=== PATIENT | female | born 1985 | race American Indian/Alaskan Native ===

== ENCOUNTER 2018-11-24 20:02 | Emergency (ER) | payer MEDICAID ==
[2018-11-24] MEDS ORDERED: SOLU-Medrol IV ONE (21:28)
[2018-11-24] MEDS ORDERED: APRESOLINE IV ONE (21:29)
--- NOTE | 2018-11-24 21:47 | Emergency Department Report ---
HPI - General Chief Complaint: Upper Respiratory Infection Time Seen by Provider: 11/24/18 21:25 - HPI HPI: 33-year-old female presents to the emergency department with a 2-3 day history of some chest congestion, mixed dry and productive cough and shortness of breath. When she is coughing, the patient says that it causes her head and chest hurt. She has a history of asthma and does complain of some recent wheezing. She tried to use her albuterol nebulizer but says that there is something wrong with her mask. She also presents with elevated blood pressure, and a history of hypertension, and says that she has been out of her amlodipine for the past 2 days. She is an intermittent smoker. Her primary care physician is Dr. Negar Fontenot. No recent travel or sick contacts at home. ED Past Medical Hx - Past Medical History Hx Hypertension: Yes Hx Asthma: Yes - Surgical History Past Surgical History?: No - Social History Smoking Status: Current Every Day Smoker Substance Use Type: Alcohol - Medications Home Medications: Home Medications Medication Instructions Recorded Confirmed Last Taken Type Benzonatate [Tessalon Perles] 100 mg PO Q8HR PRN #20 capsule 11/25/18 Unknown Rx RX: ALBUTEROL Inhaler (OR & NICU) 2 puff IH QID PRN #1 inhalation 11/25/18 Unknown Rx [ProAir HFA Inhaler] RX: amLODIPine [Norvasc] 10 mg PO DAILY #30 tab 11/25/18 Unknown Rx ED Review of Systems ROS: Stated complaint: CHEST PAIN/COUGH Other details as noted in HPI Constitutional: denies: chills, fever Eyes: denies: eye pain, vision change ENT: denies: ear pain, throat pain Respiratory: cough, shortness of breath, wheezing Cardiovascular: chest pain. denies: edema Gastrointestinal: denies: abdominal pain, vomiting Genitourinary: denies: urgency, dysuria Musculoskeletal: myalgia. denies: joint swelling Skin: denies: rash, lesions Neurological: headache. denies: weakness Physical Exam - Physical Exam Vital Signs: Vital Signs 11/24/18 11/24/18 20:06 20:12 Temperature 98.4 F Pulse Rate 94 H Respiratory 20 20 Rate Blood Pressure 182/113 [Left] O2 Sat by Pulse 98 98 Oximetry ED Course Vital Signs 11/24/18 11/24/18 20:06 20:12 Temperature 98.4 F Pulse Rate 94 H Respiratory 20 20 Rate Blood Pressure 182/113 [Left] O2 Sat by Pulse 98 98 Oximetry ED Medical Decision Making - Lab Data Result diagrams: 11/24/18 21:32 11/24/18 21:32 - EKG Data -: EKG Interpreted by Me EKG shows normal: sinus rhythm, axis, intervals, QRS complexes, ST-T waves Rate: normal - EKG Data When compared to previous EKG there are: previous EKG unavailable Interpretation: normal EKG - Radiology Data Radiology results: report reviewed, image reviewed interpreted by me: Chest x-ray does not show any pneumothorax, pleural effusion, pneumonia or obvious focal consolidation. PROCEDURE: CT ANGIO CHEST TECHNIQUE: Computerized tomographic angiography of the chest was performed after the IV injection of iodinated nonionic contrast including image processing. The image data was postprocessed using 2- dimensional multiplanar reformatted (MPR) and 3-dimensional (MIP and/or volume rendered) techniques. HISTORY: SOB, elevated dimer COMPARISON: No prior studies are available for comparison. FINDINGS: Bilateral pulmonary arteries and their branches demonstrate normal opacification without filling defects. Aorta is of normal caliber. Hilar structures are within normal limits. There is no lymphadenopathy. Cardiac size is within normal limits. A bilobed soft tissue density is noted in the anterior mediastinum measuring 5.3 x 2.5 by 3.3 centimeters most likely representing thymic tissue. Bilateral lungs and pleural spaces are clear. Vertebral height is normal. IMPRESSION: No evidence of pulmonary embolism No acute pulmonary process There is evidence of what appears to be regenerated thymic tissue in the anterior mediastinum. Clinical correlation is recommended. Transcribed By: [facility] [place]ictated By: PAMELA GANDARA Electronically Authenticated By: PAMELA GANDARA Signed Date/Time: 11/24/18 4749 - Medical Decision Making Patient presents to the emergency department with some upper respiratory type symptoms have also caused her some chest discomfort. EKG did not show any signs of ST elevation IA, ischemia or dysrhythmia. Chest x-ray did not show any p leural effusions, pneumothorax, pneumonia, focal consolidation, or any other acute process. Patient's labs are mostly unremarkable including a negative troponin. She did have a slightly elevated potassium level for which she was given some Kayexalate. She also had a slightly elevated an equivocal d-dimer for which she had a CT angiography that did not result in any pulmonary embolism, dissection, or any other acute process. She was given some breathing treatments. She did present with some elevated blood pressure and was given a dose of hydralazine with good improvement. She was reevaluated multiple times over multiple hours and says she is feeling greatly improved. She has good follow-up with primary care. She will go home with some steroids, and albuterol inhaler, cough medication. She will return to the ER with any worsening of her symptoms or any acute distress. - Differential Diagnosis IA, PE, pneumonia, URI Critical Care Time: No Critical care attestation.: If time is entered above; I have spent that time in minutes in the direct care of this critically ill patient, excluding procedure time. ED Disposition Clinical Impression: Viral syndrome Upper respiratory infection Qualifiers: URI type: unspecified URI Qualified Code(s): J06.9 - Acute upper respiratory infection, unspecified Hypertension Qualifiers: Hypertension type: essential hypertension Qualified Code(s): I10 - Essential (primary) hypertension Disposition: DC- TO HOME OR SELFCARE Is pt being admited?: No Condition: Stable Instructions: Upper Respiratory Infection (ED), Viral Syndrome (ED), Hypertension (ED) Additional Instructions: Please follow-up with your primary care physician in the next few days. Please try and stay away from foods are high in salt and caffeinated products to help with your blood pressure. Keep a blood pressure log. Return to the emergency Department with any worsening of your symptoms or any acute distress. Prescriptions: RX: ALBUTEROL Inhaler (OR & NICU) [ProAir HFA Inhaler] 2 puff IH QID PRN #1 inhalation PRN Reason: Shortness Of Breath RX: amLODIPine [Norvasc] 10 mg PO DAILY #30 tab Benzonatate [Tessalon Perles] 100 mg PO Q8HR PRN #20 capsule PRN Reason: Cough Referrals: [facility] MD SHAY [Primary Care Provider] - 2-3 Days Time of Disposition: 00:32
[2018-11-24 21:50] LABS: Basophils % (Auto) 0.6 % (0.0-1.8); Eosinophils # (Auto) 0.3 K/mm3 (0.0-0.4); Eosinophils % (Auto) 3.8 % (0.0-4.3); Hematocrit 36.5 % (30.3-42.9); Hemoglobin 12.2 gm/dl (10.1-14.3); Lymphocytes # (Auto) 1.4 K/mm3 (1.2-5.4); Lymphocytes % (Auto) 20.4 % (13.4-35.0); Mean Corpuscular HGB Conc 34 % (30-34); Mean Corpuscular Volume 79 fl (79-97); Monocytes # (Auto) 0.5 K/mm3 (0.0-0.8); Monocytes % (Auto) 8.1 % (0.0-7.3); Platelet Count 237 K/mm3 (140-440); Red Cell Distribution Width 14.6 % (13.2-15.2)
[2018-11-24] MEDS ORDERED: ZOFRAN IV ONE (21:53)
[2018-11-24] MEDS ORDERED: MORPHINE IV ONE (21:53)
[2018-11-24 21:59] LABS: BUN/Creatinine Ratio 12; Blood Urea Nitrogen 7 mg/dL (7-17); Calcium 8.9 mg/dL (8.4-10.2); Hemolysis Index 323
[2018-11-24] MEDS ORDERED: DUONEB *Not for PRN Use IH ONE (22:13)
[2018-11-24] MEDS ORDERED: KIONEX PO ONE (22:44)
--- NOTE | 2018-11-24 23:37 | Cat Scan Report ---
FINAL REPORT PROCEDURE: CT ANGIO CHEST TECHNIQUE: Computerized tomographic angiography of the chest was performed after the IV injection of iodinated nonionic contrast including image processing. The image data was postprocessed using 2-dim ensional multiplanar reformatted (MPR) and 3-dimensional (MIP and/or volume rendered) techniques. HISTORY: SOB, elevated dimer COMPARISON: No prior studies are available for comparison. FINDINGS: Bilateral pulmonary arteries and their branches demonstrate normal opacification without filling defe cts. Aorta is of normal caliber. Hilar structures are within normal limits. There is no lymphadenopat hy. Cardiac size is within normal limits. A bilobed soft tissue density is noted in the anterior medi astinum measuring 5.3 x 2.5 by 3.3 centimeters most likely representing thymic tissue. Bilateral lung s and pleural spaces are clear. Vertebral height is normal. IMPRESSION: No evidence of pulmonary embolism No acute pulmonary process There is evidence of what appears to be regenerated thymic tissue in the anterior mediastinum. Clinic al correlation is recommended.
[2018-11-24 23:41] VITALS: BP 149/94
--- NOTE | 2018-11-24 23:49 | XRay Report ---
FINAL REPORT PROCEDURE: XR CHEST 1V AP TECHNIQUE: Chest radiograph anteroposterior view. CPT 44567 HISTORY: cough COMPARISON: No prior studies are available for comparison. FINDINGS: Heart: Normal. Mediastinum/Vessels: Normal. Lungs/Pleural space: Normal. Bony thorax: No acute osseous abnormality. Life support devices: None. IMPRESSION: No acute cardiopulmonary abnormality.
== END 2018-11-25 01:09 | disposition home or self-care (01) ==
LOC: ED 20:02
DX: J06.9 Acute upper respiratory infection, unspecified (principal); B34.9 Viral infection, unspecified; I10 Essential (primary) hypertension; J45.909 Unspecified asthma, uncomplicated; F17.200 Nicotine dependence, unspecified, uncomplicated; Z88.8 Allergy status to other drugs, medicaments and biological substances
CPT/HCPCS: 36415; 71045; 71275; 80048; 84484; 84703; 85025; 85379; 93005; 93010; 94640; 96374; 96375; 99285; J0360; J2270; J2405; J2930; Q9967

== ENCOUNTER 2019-06-01 01:26 | Emergency (ER) | payer MEDICAID ==
--- NOTE | 2019-06-01 01:38 | Emergency Department Report ---
ED General Adult HPI - General Stated complaint: ACUTE ASTHMA ATTACK Time Seen by Provider: 06/01/19 01:36 - History of Present Illness Initial comments: 33-year-old female with a history of asthma and hypertension presents with difficulty breathing. Patient received Albuterol and solumedrol via EMS. Patient has no prior history of intubations or admissions in the past. Patient states that last ER visit for asthma was 2 months ago. Patient states she has no nebulized treatments at home and ran out of her antihypertensive medication yesterday. Patient states she's had a cough productive of clear phlegm. Patient has had no vomiting. - Related Data Previous Rx's Medication Instructions Recorded Last Taken Type ALBUTEROL Inhaler (OR & NICU) 2 puff IH QID PRN #1 inhalation 11/25/18 Unknown Rx [ProAir HFA Inhaler] Benzonatate [Tessalon Perles] 100 mg PO Q8HR PRN #20 capsule 11/25/18 Unknown Rx amLODIPine [Norvasc] 10 mg PO DAILY #30 tab 11/25/18 Unknown Rx ALBUTEROL Inhaler (OR & NICU) 2 puff IH QID PRN #1 inh 06/01/19 Unknown Rx [ProAir HFA Inhaler] ALBUTEROL NEB's [Proventil 0.083% 2.5 mg IH TID PRN #90 neb 06/01/19 Unknown Rx NEBS] amLODIPine [Norvasc] 10 mg PO DAILY #30 tab 06/01/19 Unknown Rx predniSONE [Deltasone] 40 mg PO QDAY #10 tab 06/01/19 Unknown Rx Allergies Allergy/AdvReac Type Severity Reaction Status Date / Time lisinopril AdvReac Swelling Verified 11/24/18 20:35 ED Review of Systems ROS: Stated complaint: ACUTE ASTHMA ATTACK Other details as noted in HPI Constitutional: denies: chills, fever Eyes: denies: eye pain, eye discharge, vision change ENT: denies: ear pain, throat pain Respiratory: shortness of breath, wheezing Cardiovascular: denies: chest pain, palpitations Endocrine: no symptoms reported Gastrointestinal: denies: abdominal pain, nausea, diarrhea Genitourinary: denies: urgency, dysuria, discharge Musculoskeletal: denies: back pain, joint swelling, arthralgia Skin: denies: rash, lesions Neurological: denies: headache, weakness, paresthesias Psychiatric: denies: anxiety, depression Hematological/Lymphatic: denies: easy bleeding, easy bruising ED Past Medical Hx - Past Medical History Hx Hypertension: Yes Hx Asthma: Yes - Social History Smoking Status: Current Every Day Smoker Substance Use Type: Alcohol - Medications Home Medications: Home Medications Medication Instructions Recorded Confirmed Last Taken Type ALBUTEROL Inhaler (OR & NICU) 2 puff IH QID PRN #1 inhalation 11/25/18 Unknown Rx [ProAir HFA Inhaler] Benzonatate [Tessalon Perles] 100 mg PO Q8HR PRN #20 capsule 11/25/18 Unknown Rx amLODIPine [Norvasc] 10 mg PO DAILY #30 tab 11/25/18 Unknown Rx ALBUTEROL Inhaler (OR & NICU) 2 puff IH QID PRN #1 inh 06/01/19 Unknown Rx [ProAir HFA Inhaler] ALBUTEROL NEB's [Proventil 0.083% 2.5 mg IH TID PRN #90 neb 06/01/19 Unknown Rx NEBS] amLODIPine [Norvasc] 10 mg PO DAILY #30 tab 06/01/19 Unknown Rx predniSONE [Deltasone] 40 mg PO QDAY #10 tab 06/01/19 Unknown Rx ED Physical Exam - General General appearance: alert, other (mildly uncomfortable;) - Head Head exam: Present: atraumatic, normocephalic - Eye Eye exam: Present: normal appearance - ENT ENT exam: Present: mucous membranes moist - Neck Neck exam: Present: normal inspection - Respiratory Respiratory exam: Present: respiratory distress, wheezes (appreciated diffusely). Absent: accessory muscle use - Cardiovascular Cardiovascular Exam: Present: regular rate, normal rhythm. Absent: systolic m urmur, diastolic murmur, rubs, gallop - GI/Abdominal GI/Abdominal exam: Present: soft, normal bowel sounds - Extremities Exam Extremities exam: Present: normal inspection - Back Exam Back exam: Present: normal inspection - Neurological Exam Neurological exam: Present: alert, oriented X3 - Psychiatric Psychiatric exam: Present: normal affect, normal mood - Skin Skin exam: Present: warm, dry, intact, normal color. Absent: rash ED Course Vital Signs 06/01/19 06/01/19 06/01/19 01:42 02:00 02:06 Temperature 97.9 F Pulse Rate 84 89 Respiratory 16 12 16 Rate Blood Pressure 185/124 Blood Pressure 197/114 [Left] O2 Sat by Pulse 99 100 99 Oximetry 06/01/19 06/01/19 06/01/19 02:45 03:31 04:00 Temperature Pulse Rate 85 90 90 Respiratory 18 19 20 Rate Blood Pressure 160/94 205/142 192/121 Blood Pressure [Left] O2 Sat by Pulse 98 99 96 Oximetry 06/01/19 06/01/19 06/01/19 04:31 04:51 05:01 Temperature Pulse Rate 90 91 H 90 Respiratory 18 25 H Rate Blood Pressure 169/99 180/111 183/114 Blood Pressure [Left] O2 Sat by Pulse 96 96 Oximetry 06/01/19 05:31 Temperature Pulse Rate 86 Respiratory 20 Rate Blood Pressure 182/113 Blood Pressure [Left] O2 Sat by Pulse 96 Oximetry ED Medical Decision Making - Lab Data Result diagrams: 06/01/19 01:59 06/01/19 01:59 Critical care attestation.: If time is entered above; I have spent that time in minutes in the direct care of this critically ill patient, excluding procedure time. ED Disposition Clinical Impression: Asthma exacerbation, Hypertension Disposition: DC- TO HOME OR SELFCARE Is pt being admited?: No Condition: Stable Instructions: Asthma (ED), Hypertension (ED) Prescriptions: predniSONE [Deltasone] 40 mg PO QDAY #10 tab amLODIPine [Norvasc] 10 mg PO DAILY #30 tab ALBUTEROL Inhaler (OR & NICU) [ProAir HFA Inhaler] 2 puff IH QID PRN #1 inh PRN Reason: Shortness Of Breath ALBUTEROL NEB's [Proventil 0.083% NEBS] 2.5 mg IH TID PRN #90 neb PRN Reason: Wheezing Referrals: JACQUES TREJO MD [Primary Care Provider] - 3-5 Days Time of Disposition: 05:58 Print Language: INDONESIAN
[2019-06-01] MEDS ORDERED: PROVENTIL IH ONE (01:47)
[2019-06-01] MEDS ORDERED: ATROVENT IH ONE (01:50)
[2019-06-01] MEDS ORDERED: MAGNESIUM SULFATE 2GM/50ML 2 GM/50 ML BAG IV ONE (01:50)
[2019-06-01 02:11] LABS: Hematocrit 36.6 % (30.3-42.9); Mean Corpuscular HGB Conc 33 % (30-34); Mean Corpuscular Volume 81 fl (79-97); Platelet Count 284 K/mm3 (140-440); Red Blood Count 4.51 M/mm3 (3.65-5.03); Red Cell Distribution Width 15.1 % (13.2-15.2)
--- NOTE | 2019-06-01 02:13 | XRay Report ---
CHEST 1 VIEW 1:52 AM INDICATION / CLINICAL INFORMATION: Chest pain. Asthma attack. COMPARISON: 11/24/2018. FINDINGS: SUPPORT DEVICES: None. HEART / MEDIASTINUM: The heart size and pulmonary vasculature are normal. LUNGS / PLEURA: No significant pulmonary or pleural abnormality. No pneumothorax. ADDITIONAL FINDINGS: No significant additional findings. IMPRESSION: No acute abnormality or significant change. Signer Name: Pedro Nye MD Signed: 06/01/2019 2:08 AM Workstation Name: [id number]
[2019-06-01 02:28] LABS: Alanine Aminotransferase 7 units/L (7-56); BUN/Creatinine Ratio 8; Blood Urea Nitrogen 6 mg/dL (7-17); Calcium 9.8 mg/dL (8.4-10.2); Hemolysis Index 6
[2019-06-01] MEDS ORDERED: CATAPRES PO ONE (04:17)
[2019-06-01 06:10] VITALS: BP 155/91
== END 2019-06-01 06:11 | disposition home or self-care (01) ==
LOC: ED 01:26
DX: J45.901 Unspecified asthma with (acute) exacerbation (principal); I10 Essential (primary) hypertension; F17.200 Nicotine dependence, unspecified, uncomplicated; Z79.899 Other long term (current) drug therapy; Z88.8 Allergy status to other drugs, medicaments and biological substances
CPT/HCPCS: 36415; 71045; 80053; 85027; 94640; 96365; 99284; J3475

== ENCOUNTER 2020-07-30 00:11 | Emergency (ER) | payer MEDICAID ==
[2020-07-30] MEDS ORDERED: MAGNESIUM SULFATE 2 GM/50 ML BAG IV ONE (00:48)
[2020-07-30] MEDS ORDERED: SODIUM CHLORIDE 0.9% 1000 ML 1,000 ML IV ONE (00:48)
[2020-07-30] MEDS ORDERED: BENZONATATE 100 MG CAP PO ONE (00:48)
[2020-07-30] MEDS ORDERED: ALBUTEROL 2.5 MG/3 ML NEBU IH ONE ×2 (00:49→02:49)
[2020-07-30] MEDS ORDERED: KETOROLAC 30 MG/1 ML INJ IV ONE (00:49)
--- NOTE | 2020-07-30 00:53 | Emergency Department Report ---
HPI - General Chief Complaint: Dyspnea/Respdistress Time Seen by Provider: 07/30/20 00:45 - HPI HPI: This is a 35-year-old female presents to the emergency department from home via EMS with complaint of shortness of breath, wheezing, coughing and chest wall pain that has been going on for the past 24 hours. Patient has a history of asthma for which she has previously been admitted one time but has never required intubation. She has been using her albuterol inhaler until it ran out yesterday. She has a nebulizer machine but does not have the albuterol Nebules. Patient says that there was a questionable fever earlier today but "I just ate some ice to get it down." EMS found the patient to have a room air oxygen saturation of 91 to 93% and she was given a DuoNeb treatment and Solu-Medrol. No recent travel or sick contacts at home. No lower extremity swelling, nausea, vomiting, back pain, diaphoresis. No recent travel or sick contacts at home. No known exposure to anyone with COVID-19. The chest wall pain worsens with coughing or deep breathing. Her primary care physician is a Dr. Negar Fontenot. ED Past Medical Hx - Past Medical History Previous Medical History?: Yes Hx Hypertension: Yes Hx Asthma: Yes - Surgical History Past Surgical History?: No - Social History Smoking Status: Current Some Day Smoker Substance Use Type: None - Medications Home Medications: Home Medications Medication Instructions Recorded Confirmed Last Taken Type Albuterol Mdi (or & Nicu Only) 2 puff IH QID PRN #1 inhalation 11/25/18 Unknown Rx [ProAir HFA Inhaler] Benzonatate [Tessalon Perles] 100 mg PO Q8HR PRN #20 capsule 11/25/18 Unknown Rx amLODIPine 10 mg PO DAILY #30 tab 11/25/18 Unknown Rx amLODIPine 10 mg PO DAILY #30 tab 06/01/19 Unknown Rx ALBUTEROL NEB's [Proventil 0.083% 2.5 mg IH Q6H PRN #1 box 07/30/20 Unknown Rx NEBS] Albuterol Mdi (or & Nicu Only) 2 puff IH QID PRN #1 inh 07/30/20 Unknown Rx [ProAir HFA Inhaler] guaiFENesin/CODEINE [Robitussin AC] 5 ml PO Q6H PRN #100 ml 07/30/20 Unknown Rx predniSONE [Deltasone] 20 mg PO BID #8 tab 07/30/20 Unknown Rx ED Review of Systems ROS: Stated complaint: ASTHMA,ASHLEIGH Other details as noted in HPI Comment: All other systems reviewed and negative Constitutional: fever. denies: chills Eyes: denies: eye pain, vision change ENT: denies: ear pain, throat pain Respiratory: cough, shortness of breath, wheezing Cardiovascular: chest pain (Chest wall pain). denies: edema Gastrointestinal: denies: nausea, vomiting Genitourinary: denies: dysuria, discharge Musculoskeletal: denies: back pain, arthralgia Skin: denies: rash, lesions Neurological: denies: headache, weakness Physical Exam - Physical Exam Vital Signs: Vital Signs 07/30/20 00:36 Temperature 98.6 F Pulse Rate 105 H Respiratory 18 Rate Blood Pressure 152/80 O2 Sat by Pulse 96 Oximetry Physical Exam: GENERAL: The patient is well-developed well-nourished. HENT: Normocephalic. Atraumatic. Patient has moist mucous membranes. EYES: Extraocular motions are intact. NECK: Supple. Trachea is midline. CHEST/LUNGS: Moderate wheezing throughout the chest. A dry cough is heard during examination. Mild tachypnea but no accessory muscle use. There is no respiratory distress noted. There is some reproducible tenderness to palpation along the chest wall but no crepitus or deformity. HEART/CARDIOVASCULAR: Regular. There is no tachycardia. There is no murmur. ABDOMEN: Abdomen is soft, nontender. Patient has normal bowel sounds. There is no abdominal distention. SKIN: Skin is warm and dry. NEURO: The patient is awake, alert, and oriented. The patient is cooperative. The patient has no focal neurologic deficits. Normal speech. MUSCULOSKELETAL: There is no tenderness or deformity. There is no limitation range of motion. ED Course Vital Signs 07/30/20 00:36 Temperature 98.6 F Pulse Rate 105 H Respiratory 18 Rate Blood Pressure 152/80 O2 Sat by Pulse 96 Oximetry - Reevaluation(s) Reevaluation #1: 07/30/20 04:30 Lab Results 07/30/20 07/30/20 07/30/20 Range/Units 00:58 00:58 00:58 WBC 8.5 (4.5-11.0) K/mm3 RBC 4.35 (3.65-5.03) M/mm3 Hgb 11.3 (10.1-14.3) gm/dl Hct 34.1 (30.3-42.9) % MCV 78 L (79-97) fl MCH 26 L (28-32) pg MCHC 33 (30-34) % RDW 17.2 H (13.2-15.2) % Plt Count 336 (140-440) K/mm3 Lymph % (Auto) 13.0 L (13.4-35.0) % [place] % (Auto) 2.7 (0.0-7.3) % Eos % (Auto) 1.4 (0.0-4.3) % Baso % (Auto) 0.6 (0.0-1.8) % Lymph # (Auto) 1.1 L (1.2-5.4) K/mm3 [place] # (Auto) 0.2 (0.0-0.8) K/mm3 Eos # (Auto) 0.1 (0.0-0.4) K/mm3 Baso # (Auto) 0.0 (0.0-0.1) K/mm3 Seg Neutrophils % 82.3 H (40.0-70.0) % Seg Neutrophils # 7.0 (1.8-7.7) K/mm3 PT 13.2 (12.2-14.9) Sec. INR 0.98 (0.87-1.13) Sodium 137 (137-145) mmol/L Potassium 3.4 L (3.6-5.0) mmol/L Chloride 99.7 (98-107) mmol/L Carbon Dioxide 21 L (22-30) mmol/L Anion Gap 20 mmol/L BUN 7 (7-17) mg/dL Creatinine 0.6 (0.6-1.2) mg/dL Estimated GFR > 60 ml/min BUN/Creatinine Ratio 12 % Glucose 101 H (65-100) mg/dL Calcium 9.1 (8.4-10.2) mg/dL Troponin T < 0.010 (0.00-0.029) ng/mL ED Medical Decision Making - Lab Data Result diagrams: 07/30/20 00:58 07/30/20 00:58 - EKG Data -: EKG Interpreted by Me EKG shows normal: sinus rhythm, axis, intervals, QRS complexes, ST-T waves Rate: normal - EKG Data When compared to previous EKG there are: previous EKG unavailable Interpretation: normal EKG - Radiology Data Radiology results: image reviewed interpreted by me: Chest x-ray does not show any acute process. There are no pleural effusions, obvious pneumonia and there is no pneumothorax. No significant cardiomegaly. - Medical Decision Making This patient presents to the emergency department with a 1 day history of some wheezing, shortness of breath, coughing, and some chest wall pain. On examination she has moderate wheezing/bronchospasm but does not appear in any respiratory or acute distress. Patient's chest discomfort is reproducible to palpation of the chest wall without any crepitus or deformity. An EKG was done that does not show any morphology consistent with ST elevation myocardial infarction or any dysrhythmia or ischemia. Chest x-ray does not show any pneumonia, pleural effusions, pneumothorax, focal consolidation, or any other acute process. Patient's labs have been unremarkable including CBC, metabolic panel, negative troponin. Patient was given IV Solu-Medrol in route with EMS. In the emergency department the patient was given 2 different breathing treatments, IV fluid, IV analgesia, magnesium and an antitussive. She was reevaluated multiple times a little hours and is feeling greatly improved. Her vital signs have been reassuring throughout her ED course including being afebri le. For all these reasons, the patient appears safe for discharge home at this time. She has good outpatient follow-up with primary care. She has been given a prescription for steroids, a refill of her albuterol inhaler and nebulizer treatments, and an antitussive. She will return to the emergency department with any worsening of her symptoms or with any acute distress. Critical Care Time: No Critical care attestation.: If time is entered above; I have spent that time in minutes in the direct care of this critically ill patient, excluding procedure time. ED Disposition Clinical Impression: Asthma exacerbation Qualifiers: Asthma severity: unspecified severity Asthma persistence: unspecified Qualified Code(s): J45.901 - Unspecified asthma with (acute) exacerbation Hypertension Qualifiers: Hypertension type: essential hypertension Qualified Code(s): I10 - Essential (primary) hypertension Disposition: TO HOME OR SELFCARE Is pt being admited?: No Condition: Stable Instructions: Asthma (ED), Hypertension (ED) Additional Instructions: Please follow-up with your primary care physician in the next few days. Take the medications as prescribed. Please quit any tobacco use. You have been prescribed a medication that is sedating and therefore should not be taken prior to driving, working, and responsible for children and in no way should be mixed with alcohol of any quantity. Return to the emergency department with any worsening of your symptoms, new or concerning symptoms not addressed during this current emergency department visit, or with any acute distress. Prescriptions: predniSONE [Deltasone] 20 mg PO BID #8 tab Albuterol Mdi (or & Nicu Only) [ProAir HFA Inhaler] 2 puff IH QID PRN #1 inh PRN Reason: Shortness Of Breath ALBUTEROL NEB's [Proventil 0.083% NEBS] 2.5 mg IH Q6H PRN #1 box PRN Reason: Wheezing guaiFENesin/CODEINE [Robitussin AC] 5 ml PO Q6H PRN #100 ml PRN Reason: Cough Referrals: PCP, Your [Other] - 2-3 Days Time of Disposition: 03:40
--- NOTE | 2020-07-30 01:23 | XRay Report ---
CHEST 1 VIEW INDICATION / CLINICAL INFORMATION: SOB. COMPARISON: 06/01/2019 FINDINGS: SUPPORT DEVICES: None. HEART / MEDIASTINUM: No significant abnormality. LUNGS / PLEURA: No significant pulmonary or pleural abnormality.. No pneumothorax. ADDITIONAL FINDINGS: No significant additional findings. IMPRESSION: 1. No acute findings. Signer Name: Hung Valladares MD Signed: 07/30/2020 1:19 AM Workstation Name: [id number]
[2020-07-30 01:26] LABS: Basophils % (Auto) 0.6 % (0.0-1.8); Eosinophils # (Auto) 0.1 K/mm3 (0.0-0.4); Eosinophils % (Auto) 1.4 % (0.0-4.3); Hematocrit 34.1 % (30.3-42.9); Hemoglobin 11.3 gm/dl (10.1-14.3); Lymphocytes # (Auto) 1.1 K/mm3 (1.2-5.4); Mean Corpuscular HGB Conc 33 % (30-34); Mean Corpuscular Volume 78 fl (79-97); Monocytes # (Auto) 0.2 K/mm3 (0.0-0.8); Monocytes % (Auto) 2.7 % (0.0-7.3); Platelet Count 336 K/mm3 (140-440); Red Blood Count 4.35 M/mm3 (3.65-5.03); Red Cell Distribution Width 17.2 % (13.2-15.2)
[2020-07-30 01:37] LABS: INR 0.98 (0.87-1.13)
[2020-07-30 01:41] LABS: Blood Urea Nitrogen 7 mg/dL (7-17); Calcium 9.1 mg/dL (8.4-10.2); Hemolysis Index 2
[2020-07-30] MEDS ORDERED: MORPHINE 4 MG/1 ML INJ IV ONE (02:00)
[2020-07-30 02:02] LABS: BUN/Creatinine Ratio 12
[2020-07-30 05:24] VITALS: BP 128/84
== END 2020-07-30 04:00 | disposition home or self-care (01) ==
LOC: ED 00:11
DX: J45.901 Unspecified asthma with (acute) exacerbation (principal); I10 Essential (primary) hypertension; F17.200 Nicotine dependence, unspecified, uncomplicated; Z79.899 Other long term (current) drug therapy; Z88.8 Allergy status to other drugs, medicaments and biological substances
CPT/HCPCS: 36415; 71045; 80048; 84484; 85025; 85610; 93005; 94640; 96365; 96375; 99285; J1885; J2270; J3475; J7030; 94644

== ENCOUNTER 2021-03-23 12:50 | Emergency (ER) | payer MEDICAID ==
[2021-03-23] MEDS ORDERED: IBUPROFEN 600 MG TAB PO ONE (13:37)
[2021-03-23] MEDS ORDERED: ACETAMINOPHEN 500 MG TAB PO ONE (13:37)
[2021-03-23 13:41] VITALS: BP 150/85
--- NOTE | 2021-03-23 13:41 | Emergency Department Report ---
ED Lower Extremity HPI - General Stated Complaint: LT KNEE/ANKLE PAIN - History of Present Illness Initial Comments: Patient is a 35-year-old -[place] female with no past medical history presents to the ED with complaint of acute onset persistent severe left ankle pain and swelling after she twisted her left ankle while walking 2 days ago. Patient states that the pain has been persistent and worse especially in the last 24 hours such that she is unable to bear weight on the left ankle because of pain. Patient denies fall, traumatic injury, dizziness, syncope, chest pain or shortness of breath, numbness and tingling or weakness of lower extremities bilaterally, back pain, abdominal pain, nausea and vomiting. MD Complaint: ankle injury (Severe left ankle pain) -: Sudden, days(s) (2) Injury: Ankle: Left (Pain and swelling) Type of Injury: inversion Place: street/outdoors Severity: severe Severity scale (0 -10): 8 Improves With: nothing Worsens With: weight bearing, movement, palpation Context: walking, other (Twisted left ankle while walking) Associated Symptoms: snap/pop sensation, swelling, able to partially bear weight. denies: numbness, tingling, unable to bear weight - Related Data Previous Rx's Medication Instructions Recorded Last Taken Type Albuterol Mdi (or & Nicu Only) 2 puff IH QID PRN #1 inhalation 11/25/18 Unknown Rx [ProAir HFA Inhaler] Benzonatate [Tessalon Perles] 100 mg PO Q8HR PRN #20 capsule 11/25/18 Unknown Rx amLODIPine 10 mg PO DAILY #30 tab 11/25/18 Unknown Rx amLODIPine 10 mg PO DAILY #30 tab 06/01/19 Unknown Rx ALBUTEROL NEB's [Proventil 0.083% 2.5 mg IH Q6H PRN #1 box 07/30/20 Unknown Rx NEBS] Albuterol Mdi (or & Nicu Only) 2 puff IH QID PRN #1 inh 07/30/20 Unknown Rx [ProAir HFA Inhaler] guaiFENesin/CODEINE [Robitussin AC] 5 ml PO Q6H PRN #100 ml 07/30/20 Unknown Rx predniSONE [Deltasone] 20 mg PO BID #8 tab 07/30/20 Unknown Rx Baclofen 20 mg PO Q12H PRN #20 tablet 03/23/21 Unknown Rx Ibuprofen [Motrin] 800 mg PO Q8HR PRN #30 tablet 03/23/21 Unknown Rx traMADoL [Ultram] 50 mg PO Q6HR PRN #10 tablet 03/23/21 Unknown Rx Allergies Allergy/AdvReac Type Severity Reaction Status Date / Time lisinopril AdvReac Swelling Verified 03/23/21 14:44 ED Review of Systems ROS: Stated complaint: LT KNEE/ANKLE PAIN Other details as noted in HPI Constitutional: denies: chills, fever Eyes: denies: eye pain, eye discharge, vision change ENT: denies: ear pain, throat pain Respiratory: denies: cough, shortness of breath, wheezing Cardiovascular: denies: chest pain, palpitations Endocrine: no symptoms reported Gastrointestinal: denies: abdominal pain, nausea, diarrhea Genitourinary: denies: urgency, dysuria, discharge Musculoskeletal: joint swelling (Left ankle swelling), arthralgia (Left ankle pain and swelling). denies: back pain Skin: denies: rash, lesions Neurological: denies: headache, weakness, paresthesias Psychiatric: denies: anxiety, depression Hematological/Lymphatic: denies: easy bleeding, easy bruising ED Past Medical Hx - Past Medical History Hx Hypertension: Yes Hx Asthma: Yes - Social History Smoking Status: Current Some Day Smoker Substance Use Type: None - Medications Home Medications: Home Medications Medication Instructions Recorded Confirmed Last Taken Type Albuterol Mdi (or & Nicu Only) 2 puff IH QID PRN #1 inhalation 11/25/18 Unknown Rx [ProAir HFA Inhaler] Benzonatate [Tessalon Perles] 100 mg PO Q8HR PRN #20 capsule 11/25/18 Unknown Rx amLODIPine 10 mg PO DAILY #30 tab 11/25/18 Unknown Rx amLODIPine 10 mg PO DAILY #30 tab 06/01/19 Unknown Rx ALBUTEROL NEB's [Proventil 0.083% 2.5 mg IH Q6H PRN #1 box 07/30/20 Unknown Rx NEBS] Albuterol Mdi (or & Nicu Only) 2 puff IH QID PRN #1 inh 07/30/20 Unknown Rx [ProAir HFA Inhaler] guaiFENesin/CODEINE [Robitussin AC] 5 ml PO Q6H PRN #100 ml 07/30/20 Unknown Rx predniSONE [Deltasone] 20 mg PO BID #8 tab 07/30/20 Unknown Rx Baclofen 20 mg PO Q12H PRN #20 tablet 03/23/21 Unknown Rx Ibuprofen [Motrin] 800 mg PO Q8HR PRN #30 tablet 03/23/21 Unknown Rx traMADoL [Ultram] 50 mg PO Q6HR PRN #10 tablet 03/23/21 Unknown Rx ED Physical Exam - General General appearance: alert, in no apparent distress - Head Head exam: Present: atraumatic, normocephalic, normal inspection - Eye Eye exam: Present: normal appearance, PERRL, EOMI Pupils: Present: normal accommodation - ENT ENT exam: Present: normal exam, normal orophraynx, mucous membranes moist, TM's normal bilaterally, normal external ear exam - Neck Neck exam: Present: normal inspection, full ROM. Absent: tenderness, lymphadenopathy - Respiratory Respiratory exam: Present: normal lung sounds bilaterally. Absent: respiratory distress, wheezes, rales, rhonchi, chest wall tenderness, accessory muscle use, decreased breath sounds, other - Cardiovascular Cardiovascular Exam: Present: regular rate, normal rhythm, normal heart sounds. Absent: systolic murmur, diastolic murmur, rubs, gallop - GI/Abdominal GI/Abdominal exam: Present: soft, normal bowel sounds. Absent: tenderness, guarding, rebound, hyperactive bowel sounds, hypoactive bowel sounds - Extremities Exam Extremities exam: Present: normal inspection, tenderness (Palpable severe left ankle tenderness with mild swelling and limited range of motion due to pain), normal capillary refill, joint swelling (Left ankle swelling). Absent: full ROM (Limited range of motion due to pain) - Back Exam Back exam: Present: normal inspection, full ROM. Absent: tenderness, CVA tenderness (L), muscle spasm, paraspinal tenderness - Neurological Exam Neurological exam: Present: alert, oriented X3, CN II-XII intact, normal gait, reflexes normal - Psychiatric Psychiatric exam: Present: normal affect, normal mood - Skin Skin exam: Present: warm, dry, intact, normal color. Absent: rash ED Course Vital Signs 03/23/21 13:37 Temperature 98.3 F Pulse Rate 100 H Respiratory 20 Rate Blood Pressure 150/85 O2 Sat by Pulse 99 Oximetry ED Lower Extremity MDM - Radiology Data Radiology results: report reviewed, image reviewed Left ankle x-ray shows no acute fractures or subluxations but mild left ankle edema based on the dictated left ankle x-ray report by the radiologist - Medical Decision Making This is a 35-year-old -[place] female with no past medical history presents to the ED with complaint of acute onset persistent severe left ankle pain and swelling after she twisted her left ankle while walking 2 days ago. Patient states that the pain has been persistent and worse especially in the last 24 hours such that she is unable to bear weight on the left ankle because of pain. Patient was treated for pain in the ED and left ankle x-ray shows mild ankle edema without any acute displaced fractures based on the dictated imaging report by the radiologist. The patient left ankle was splinted with Cody wrap and the patient will discharge home on crutches and prescription pain medications. Patient is advised to follow-up with her primary care physician in 5 to 7 days for reevaluation. Patient is advised return to the ED immediately if symptoms get worse. - Differential Diagnosis Ankle fracture; ankle sprain; muscle strain; ankle contusion Critical care attestation.: If time is entered above; I have spent that time in minutes in the direct care of this critically ill patient, excluding procedure time. ED Disposition Clinical Impression: Severe sprain of left ankle Qualifiers: Encounter type: initial encounter Qualified Code(s): S93.402A - Sprain of unspecified ligament of left ankle, initial encounter Muscle strain of left foot Qualifiers: Encounter type: initial encounter Qualified Code(s): S96.912A - Strain of unspecified muscle and tendon at ankle and foot level, left foot, initial encounter Disposition: - TO HOME OR SELFCARE Is pt being admited?: No Does the pt Need Aspirin: No Condition: Stable Instructions: Ankle Sprain, [id number], Muscle Strain, [id number] Additional Instructions: The left ankle x-ray showed no acute fractures or subluxation but mild soft tissue swelling. Therefore take medication with food, drink plenty of fluids and follow-up with your primary care physician in 5 to 7 days for reevaluation. Return to the ED immediately if symptoms get worse. Prescriptions: Baclofen 20 mg PO Q12H PRN #20 tablet PRN Reason: Muscle Spasm Ibuprofen [Motrin] 800 mg PO Q8HR PRN #30 tablet PRN Reason: Pain , Severe (7-10) traMADoL [Ultram] 50 mg PO Q6HR PRN #10 tablet PRN Reason: Pain Referrals: [facility] [Provider Group] - 3-5 Days Forms: Work/School Release Form(ED) Time of Disposition: 16:57 Print Language: TAJIK
--- NOTE | 2021-03-23 18:09 | XRay Report ---
LEFT ANKLE 3 VIEWS INDICATION / CLINICAL INFORMATION: pain - injury COMPARISON: None available. FINDINGS: BONES / JOINT(S): No acute fracture or subluxation. Possible small loose body seen anteriorly on the lateral view. SOFT TISSUES: No significant abnormality. ADDITIONAL FINDINGS: None. Signer Name: Darian Johnson MD Signed: 03/23/2021 6:05 PM Workstation Name: [id number]
== END 2021-03-23 17:54 | disposition home or self-care (01) ==
LOC: ED 12:50
DX: S93.402A Sprain of unspecified ligament of left ankle, initial encounter (principal); S96.912A Strain of unspecified muscle and tendon at ankle and foot level, left foot, initial encounter; I10 Essential (primary) hypertension; J45.909 Unspecified asthma, uncomplicated; F17.200 Nicotine dependence, unspecified, uncomplicated; Z88.8 Allergy status to other drugs, medicaments and biological substances; Z79.899 Other long term (current) drug therapy; X50.1XXA Overexertion from prolonged static or awkward postures, initial encounter; Y93.89 Activity, other specified; Y92.410 Unspecified street and highway as the place of occurrence of the external cause; Y99.8 Other external cause status

== ENCOUNTER 2021-05-04 01:37 | Emergency (ER) | payer MEDICAID ==
[2021-05-04 02:34] VITALS: BP 149/90
[2021-05-04 03:29] LABS: Basophils # (Auto) 0.1 K/mm3 (0.0-0.1); Basophils % (Auto) 0.7 % (0.0-1.8); Eosinophils # (Auto) 0.3 K/mm3 (0.0-0.4); Eosinophils % (Auto) 3.4 % (0.0-4.3); Hematocrit 38.6 % (30.3-42.9); Hemoglobin 12.5 gm/dl (10.1-14.3); Lymphocytes # (Auto) 2.2 K/mm3 (1.2-5.4); Lymphocytes % (Auto) 30.5 % (13.4-35.0); Mean Corpuscular HGB Conc 33 % (30-34); Mean Corpuscular Volume 81 fl (79-97); Monocytes # (Auto) 0.4 K/mm3 (0.0-0.8); Monocytes % (Auto) 5.6 % (0.0-7.3); Platelet Count 343 K/mm3 (140-440); Red Blood Count 4.75 M/mm3 (3.65-5.03); Red Cell Distribution Width 14.7 % (13.2-15.2)
[2021-05-04 03:50] LABS: Alanine Aminotransferase 9 units/L (7-56); Albumin 4.3 g/dL (3.9-5); Blood Urea Nitrogen 6 mg/dL (7-17); Calcium 9.7 mg/dL (8.4-10.2); Hemolysis Index 9
[2021-05-04 04:00] LABS: BUN/Creatinine Ratio 9
[2021-05-04] MEDS ORDERED: ONDANSETRON 4 MG ODT TAB PO ONE (04:51)
[2021-05-04] MEDS ORDERED: FAMOTIDINE 20 MG TAB PO ONE (04:51)
[2021-05-04] MEDS ORDERED: KETOROLAC 30 MG/1 ML INJ IM ONE (04:51)
[2021-05-04] MEDS ORDERED: BUTALB/ACETAMINOPHEN/CAFFEINE TAB PO ONE (04:51)
--- NOTE | 2021-05-04 05:22 | Emergency Department Report ---
ED N/V/D HPI - General Chief complaint: Abdominal Pain Stated complaint: DIZZY/LIGHT HEADED Source: patient Mode of arrival: Ambulatory Limitations: No Limitations - History of Present Illness Initial comments: Patient is a 35-year-old -[place] female with a history of hypertension and asthma who presents to the ED with complaint of acute onset persistent nausea, vomiting, mild epigastric pain and diarrhea as well as headache for the last 2 days after eating some fish male. Patient states that in the last 12 hours she has not been able to keep anything down and has had up to 5 episodes of vomiting and diarrhea. Patient also complains of persistent lightheadedness with frontal headache. Patient denies dysuria, urinary frequency and urgency, fever, chills, dizziness, syncope, chest pain, shortness of breath, sore throat, nasal and sinus congestion or vaginal bleeding and vaginal discharge., MD complaint: nausea, vomiting, diarrhea, other (Frontal headache) -: Sudden, days(s) (2) Description of Vomiting: food contents, watery Description of Diarrhea: water Associated Abdominal Pain: Yes (Mild epigastric pain) - Related Data Previous Rx's Medication Instructions Recorded Last Taken Type Albuterol Mdi (or & Nicu Only) 2 puff IH QID PRN #1 inhalation 11/25/18 Unknown Rx [ProAir HFA Inhaler] Benzonatate [Tessalon Perles] 100 mg PO Q8HR PRN #20 capsule 11/25/18 Unknown Rx amLODIPine 10 mg PO DAILY #30 tab 11/25/18 Unknown Rx amLODIPine 10 mg PO DAILY #30 tab 06/01/19 Unknown Rx ALBUTEROL NEB's [Proventil 0.083% 2.5 mg IH Q6H PRN #1 box 07/30/20 Unknown Rx NEBS] Albuterol Mdi (or & Nicu Only) 2 puff IH QID PRN #1 inh 07/30/20 Unknown Rx [ProAir HFA Inhaler] guaiFENesin/CODEINE [Robitussin AC] 5 ml PO Q6H PRN #100 ml 07/30/20 Unknown Rx predniSONE [Deltasone] 20 mg PO BID #8 tab 07/30/20 Unknown Rx Baclofen 20 mg PO Q12H PRN #20 tablet 03/23/21 Unknown Rx Ibuprofen [Motrin] 800 mg PO Q8HR PRN #30 tablet 03/23/21 Unknown Rx traMADoL [Ultram] 50 mg PO Q6HR PRN #10 tablet 03/23/21 Unknown Rx Butalb/Acetamin/Caff 50-325-40 1 - 2 tab PO Q6HR PRN #15 tab 05/04/21 Unknown Rx [Fioricet 50-325-40] Dicyclomine [Bentyl] 20 mg PO Q6H PRN #30 tablet 05/04/21 Unknown Rx Famotidine [Pepcid] 20 mg PO BID #30 tablet 05/04/21 Unknown Rx Ondansetron [Zofran Odt] 4 mg PO Q6HR PRN #20 tab.rapdis 05/04/21 Unknown Rx Allergies Allergy/AdvReac Type Severity Reaction Status Date / Time lisinopril AdvReac Swelling Verified 03/23/21 14:44 ED Review of Systems ROS: Stated complaint: DIZZY/LIGHT HEADED Other details as noted in HPI Constitutional: denies: chills, fever Eyes: denies: eye pain, eye discharge, vision change ENT: denies: ear pain, throat pain Respiratory: denies: cough, shortness of breath, wheezing Cardiovascular: denies: chest pain, palpitations Endocrine: no symptoms reported Gastrointestinal: nausea, vomiting, diarrhea. denies: abdominal pain Genitourinary: denies: urgency, dysuria, discharge Musculoskeletal: denies: back pain, joint swelling, arthralgia Skin: denies: rash, lesions Neurological: headache. denies: weakness, paresthesias Psychiatric: denies: anxiety, depression Hematological/Lymphatic: denies: easy bleeding, easy bruising ED Past Medical Hx - Past Medical History Previous Medical History?: Yes Hx Hypertension: Yes Hx Asthma: Yes - Surgical History Past Surgical History?: Yes Hx Cholecystectomy: Yes Additional Surgical History: C sect x4 - Social History Smoking Status: Current Some Day Smoker Substance Use Type: None - Medications Home Medications: Home Medications Medication Instructions Recorded Confirmed Last Taken Type Albuterol Mdi (or & Nicu Only) 2 puff IH QID PRN #1 inhalation 11/25/18 Unknown Rx [ProAir HFA Inhaler] Benzonatate [Tessalon Perles] 100 mg PO Q8HR PRN #20 capsule 11/25/18 Unknown Rx amLODIPine 10 mg PO DAILY #30 tab 11/25/18 Unknown Rx amLODIPine 10 mg PO DAILY #30 tab 06/01/19 Unknown Rx ALBUTEROL NEB's [Proventil 0.083% 2.5 mg IH Q6H PRN #1 box 07/30/20 Unknown Rx NEBS] Albuterol Mdi (or & Nicu Only) 2 puff IH QID PRN #1 inh 07/30/20 Unknown Rx [ProAir HFA Inhaler] guaiFENesin/CODEINE [Robitussin AC] 5 ml PO Q6H PRN #100 ml 07/30/20 Unknown Rx predniSONE [Deltasone] 20 mg PO BID #8 tab 07/30/20 Unknown Rx Baclofen 20 mg PO Q12H PRN #20 tablet 03/23/21 Unknown Rx Ibuprofen [Motrin] 800 mg PO Q8HR PRN #30 tablet 03/23/21 Unknown Rx traMADoL [Ultram] 50 mg PO Q6HR PRN #10 tablet 03/23/21 Unknown Rx Butalb/Acetamin/Caff 50-325-40 1 - 2 tab PO Q6HR PRN #15 tab 05/04/21 Unknown Rx [Fioricet 50-325-40] Dicyclomine [Bentyl] 20 mg PO Q6H PRN #30 tablet 05/04/21 Unknown Rx Famotidine [Pepcid] 20 mg PO BID #30 tablet 05/04/21 Unknown Rx Ondansetron [Zofran Odt] 4 mg PO Q6HR PRN #20 tab.rapdis 05/04/21 Unknown Rx ED Physical Exam - General Limitations: No Limitations General appearance: alert, in no apparent distress - Head Head exam: Present: atraumatic, normocephalic, normal inspection - Eye Eye exam: Present: normal appearance, PERRL, EOMI Pupils: Present: normal accommodation - ENT ENT exam: Present: normal exam, normal orophraynx, mucous membranes moist, TM's normal bilaterally, normal external ear exam - Neck Neck exam: Present: normal inspection, full ROM - Respiratory Respiratory exam: Present: normal lung sounds bilaterally. Absent: respiratory distress, wheezes, rales, stridor, chest wall tenderness, accessory muscle use - Cardiovascular Cardiovascular Exam: Present: regular rate, normal rhythm, normal heart sounds. Absent: systolic murmur, diastolic murmur, rubs, gallop - GI/Abdominal GI/Abdominal exam: Present: soft, normal bowel sounds. Absent: tenderness, guarding, rebound, hyperactive bowel sounds, hypoactive bowel sounds, mass - Extremities Exam Extremities exam: Present: normal inspection, full ROM, normal capillary refill - Back Exam Back exam: Present: normal inspection, full ROM. Absent: tenderness, CVA tenderness (R), CVA tenderness (L), muscle spasm - Neurological Exam Neurological exam: Present: alert, oriented X3, CN II-XII intact, normal gait, reflexes normal - Psychiatric Psychiatric exam: Present: normal affect, normal mood - Skin Skin exam: Present: warm, dry, intact, normal color. Absent: rash ED Course Vital Signs 05/04/21 02:29 Temperature 98.3 F Pulse Rate 99 H Respiratory 19 Rate Blood Pressure 149/90 O2 Sat by Pulse 98 Oximetry ED Medical Decision Making - Lab Data Result diagrams: 05/04/21 02:42 05/04/21 02:42 - Medical Decision Making This is a 35-year-old -[place] female with a history of hypertension and asthma who presents to the ED with complaint of acute onset persistent nausea, vomiting, mild epigastric pain and diarrhea as well as headache for the last 2 days after eating some fish male. Patient states that in the last 12 hours she has not been able to keep anything down and has had up to 5 episodes of vomiting and diarrhea. Patient also complains of persistent lightheadedness with frontal headache. In the ED, patient is alert and oriented x3 and is not in any distress. Patient was treated in the ED for pain and also given antiemetics and antacids. Lab test results were reviewed and are all nonactionable and the patient's serum hCG was negative. Patient declined to give urine for urinalysis. On reevaluation, patient felt better, the headache resolved as well as nausea and vomiting. Patient will discharge home on medications including antiemetics, antacids and pain medications and advised to maintain a clear liquid diet for 12 to 24 hours, drink plenty of fluids, take prescribed medications and follow-up with her primary care physician in 5 to 7 days for reevaluation. Patient was otherwise advised return to the ED immediately if symptoms get worse. - Differential Diagnosis Viral gastroenteritis; GERD; dehydration; UTI; Critical care attestation.: If time is entered above; I have spent that time in minutes in the direct care of this critically ill patient, excluding procedure time. ED Disposition Clinical Impression: Nausea, vomiting and diarrhea, Viral gastroenteritis Tension type headache Qualifiers: Headache chronicity pattern: acute headache Intractability: not intractable Qualified Code(s): G44.209 - Tension-type headache, unspecified, not intractable Disposition: - TO HOME OR SELFCARE Is pt being admited?: No Does the pt Need Aspirin: No Condition: Stable Instructions: Abdominal Pain (ED), Viral Gastroenteritis, Adult, [id number], Nausea and Vomiting, Adult, [id number], Diarrhea, Adult, [id number], Tension Headache, Adult, [id number] Additional Instructions: All lab test results were reviewed and are all nonactionable. Your symptoms are likely viral in etiology, therefore maintain a clear liquid diet for 12 to 24 hours, take medication as needed for nausea and vomiting and pain, and follow-up with your primary care physician in 5 to 7 days for reevaluation. Return to the ED immediately if symptoms get worse. Prescriptions: Dicyclomine [Bentyl] 20 mg PO Q6H PRN #30 tablet PRN Reason: Abdominal pain Butalb/Acetamin/Caff 50-325-40 [Fioricet 50-325-40] 1 - 2 tab PO Q6HR PRN #15 tab PRN Reason: Headache Famotidine [Pepcid] 20 mg PO BID #30 tablet Ondansetron [Zofran Odt] 4 mg PO Q6HR PRN #20 tab.rapdis PRN Reason: Nausea Referrals: [facility] [Provider Group] - 3-5 Days Forms: Work/School Release Form(ED) Time of Disposition: 05:22 Print Language: SPANISH
[2021-05-04 05:53] LABS: Bilirubin,Urine NEG (Negative); Blood,Urine SM (Negative); Color,Urine Yellow (Yellow); Protein,Urine <15 mg/dL mg/dL (Negative); Urobilinogen,Urine < 2.0 mg/dL (<2.0)
== END 2021-05-04 05:35 | disposition home or self-care (01) ==
LOC: ED 01:37
DX: G44.209 Tension-type headache, unspecified, not intractable (principal); A08.4 Viral intestinal infection, unspecified; R19.7 Diarrhea, unspecified; R11.2 Nausea with vomiting, unspecified; I10 Essential (primary) hypertension; F17.200 Nicotine dependence, unspecified, uncomplicated; J45.909 Unspecified asthma, uncomplicated; Z90.49 Acquired absence of other specified parts of digestive tract; Z79.899 Other long term (current) drug therapy; Z98.890 Other specified postprocedural states; Z88.8 Allergy status to other drugs, medicaments and biological substances
CPT/HCPCS: 36415; 80053; 81001; 83690; 84703; 85025; 96372; 99283; J1885; Q0162

== ENCOUNTER 2022-02-19 18:31 | Emergency (ER) | payer MEDICAID ==
[2022-02-19] MEDS ORDERED: ONDANSETRON 4 MG ODT TAB PO ONE (20:10)
[2022-02-19 21:31] LABS: Hemoglobin 11.3 gm/dl (10.1-14.3)
[2022-02-19 21:54] LABS: Alanine Aminotransferase 13 units/L (7-56); Albumin 4.2 g/dL (3.9-5); BUN/Creatinine Ratio 4; Blood Urea Nitrogen 3 mg/dL (7-17); Calcium 8.8 mg/dL (8.4-10.2); Hemolysis Index 0
[2022-02-20] MEDS ORDERED: methylPREDNISolone Sod Succinate 125 MG/2 ML INJ IM ONE (02:55)
[2022-02-20] MEDS ORDERED: IPRATROPIUM/ALBUTEROL SULFATE 3 ML AMPUL.NEB IH ONE (02:56)
[2022-02-20] MEDS ORDERED: FAMOTIDINE 20 MG TAB PO ONE (02:56)
[2022-02-20] MEDS ORDERED: diphenhydrAMINE 25 MG CAP PO ONE (02:56)
[2022-02-20] MEDS ORDERED: KETOROLAC 10 MG TAB PO ONE (02:56)
[2022-02-20] MEDS ORDERED: AMOXICILLIN 500 MG CAP PO ONE (05:07)
--- NOTE | 2022-02-20 05:10 | Emergency Department Report ---
ED Headache HPI - General Chief Complaint: Headache Stated Complaint: TOOK PILLS SAT/WANTS TO BE CHECKED Time Seen by Provider: 02/20/22 02:33 Source: patient - History of Present Illness Initial Comments: 36 yo black female with pmh of HTN and asthma presents to the emergency department for evaluation of ENG, sore throat, sob. She states that she was hanging with her cousins on Friday and used cocaine for the first time in her life and since then, she has not felt well since then. She states that she has had intermittent fever and wheezing and feels like her throat is swollen. Timing/Duration: increasing, other (2-3 days) Quality: severe Head Injury Location: other (generalized) Associated Symptoms: fever/chills. denies: confusion, fatigue, facial pain, flushing, loss of consciousness, nausea/vomiting, nasal congestion, nasal drainage, numbness in legs/feet, rash, sinus infection, stiff neck, vision changes, weakness Allergies/Adverse Reactions: Allergies lisinopril Adverse Reaction (Verified 02/07/22 09:44) Swelling Home Medications: Ambulatory Orders Albuterol Mdi (or & Nicu Only) [ProAir HFA Inhaler] 2 puff IH QID PRN #1 inhalation 11/25/18 ALBUTEROL NEB's [Proventil 0.083% NEBS] 2.5 mg IH Q6H PRN #1 box 07/30/20 guaiFENesin/CODEINE [Robitussin AC] 5 ml PO Q6H PRN #100 ml 07/30/20 predniSONE [Deltasone] 20 mg PO BID #8 tab 07/30/20 traMADoL [Ultram 50 MG tab] 50 mg PO Q6HR PRN #10 tablet 03/23/21 Butalb/Acetamin/Caff 50-325-40 [Fioricet 50-325-40] 1 - 2 tab PO Q6HR PRN #15 tab 05/04/21 Ondansetron [Zofran ODT TAB] 4 mg PO Q6HR PRN #20 tab.rapdis 05/04/21 Cyclobenzaprine HCl [Cyclobenzaprine 7.5 MG TAB] 7.5 mg PO TID PRN 14 Days #42 tab 02/08/22 Dicyclomine [Bentyl] 20 mg PO Q6H PRN 14 Days #56 tablet 02/08/22 Famotidine [Pepcid] 20 mg PO BID 30 Days #60 tablet 02/08/22 amLODIPine 10 mg PO DAILY 30 Days #30 tab 02/08/22 Amoxicillin [Amoxicillin TAB] 875 mg PO BID #14 tab 02/20/22 Naproxen [Naprosyn] 500 mg PO BID #14 tab 02/20/22 Nystas/Diphen/Xyl Visc/Mylanta [Magic Mouthwash] 30 ml MM Q4H PRN #240 ml 02/20/22 methylPREDNISolone [Medrol 4MG DOSEPAK (21 tabs)] 4 mg PO DAILY #1 pack 02/20/22 ED Review of Systems ROS: Stated complaint: TOOK PILLS SAT/WANTS TO BE CHECKED Other details as noted in HPI Comment: All other systems reviewed and negative Constitutional: fever. denies: chills Eyes: denies: eye pain, eye discharge, vision change ENT: throat pain. denies: dental pain, congestion Respiratory: shortness of breath, wheezing. denies: cough, orthopnea, SOB with exertion, SOB at rest, stridor Cardiovascular: denies: chest pain, palpitations, dyspnea on exertion, orthopnea, syncope, paroxysmal nocturnal dyspnea Gastrointestinal: denies: abdominal pain, nausea, vomiting, diarrhea, hematemesis, melena, hematochezia Genitourinary: denies: urgency, dysuria, frequency, hematuria, discharge Musculoskeletal: denies: back pain Skin: denies: rash, lesions Neurological: headache. denies: numbness, paresthesias, confusion, abnormal gait, vertigo Psychiatric: denies: anxiety Hematological/Lymphatic: denies: easy bleeding, easy bruising ED Past Medical Hx - Past Medical History Hx Hypertension: Yes Hx Asthma: Yes - Surgical History Hx Cholecystectomy: Yes Additional Surgical History: C sect x4 - Social History Smoking Status: Never Smoker - Medications Home Medications: Home Medications Medication Instructions Recorded Confirmed Last Taken Type Albuterol Mdi (or & Nicu Only) 2 puff IH QID PRN #1 inhalation 11/25/18 02/07/22 Unknown Rx [ProAir HFA Inhaler] ALBUTEROL NEB's [Proventil 0.083% 2.5 mg IH Q6H PRN #1 box 07/30/20 Unknown Rx NEBS] guaiFENesin/CODEINE [Robitussin AC] 5 ml PO Q6H PRN #100 ml 07/30/20 02/07/22 Unknown Rx predniSONE [Deltasone] 20 mg PO BID #8 tab 07/30/20 02/07/22 Unknown Rx traMADoL [Ultram 50 MG tab] 50 mg PO Q6HR PRN #10 tablet 03/23/21 02/07/22 Unknown Rx Butalb/Acetamin/Caff 50-325-40 1 - 2 tab PO Q6HR PRN #15 tab 05/04/21 02/07/22 Unknown Rx [Fioricet 50-325-40] Ondansetron [Zofran ODT TAB] 4 mg PO Q6HR PRN #20 tab.rapdis 05/04/21 02/07/22 Unknown Rx Cyclobenzaprine HCl 7.5 mg PO TID PRN 14 Days #42 tab 02/08/22 Unknown Rx [Cyclobenzaprine 7.5 MG TAB] Dicyclomine [Bentyl] 20 mg PO Q6H PRN 14 Days #56 tablet 02/08/22 Unknown Rx Famotidine [Pepcid] 20 mg PO BID 30 Days #60 tablet 02/08/22 Unknown Rx amLODIPine 10 mg PO DAILY 30 Days #30 tab 02/08/22 Unknown Rx Amoxicillin [Amoxicillin TAB] 875 mg PO BID #14 tab 02/20/22 Unknown Rx Naproxen [Naprosyn] 500 mg PO BID #14 tab 02/20/22 Unknown Rx Nystas/Diphen/Xyl Visc/Mylanta 30 ml MM Q4H PRN #240 ml 02/20/22 Unknown Rx [Magic Mouthwash] methylPREDNISolone [Medrol 4MG 4 mg PO DAILY #1 pack 02/20/22 Unknown Rx DOSEPAK (21 tabs)] ED Physical Exam - General Limitations: No Limitations General appearance: alert, in no apparent distress - Head Head exam: Present: atraumatic, normocephalic - Eye Eye exam: Present: normal appearance, PERRL. Absent: conjunctival injection, periorbital swelling, periorbital tenderness - ENT ENT exam: Present: normal exam, TM's normal bilaterally. Absent: normal orophraynx - Expanded ENT Exam Expanded Ear exam: Present: normal external inspection Mouth exam: Present: muffled voice Teeth exam: Present: normal inspection Throat exam: Positive: tonsillar erythema, tonsillomegaly, tonsillar exudate. Negative: R peritonsillar mass, L peritonsillar mass - Neck Neck exam: Present: tenderness, lymphadenopathy (anterior cervical). Absent: meningismus - Respiratory Respiratory exam: Present: wheezes. Absent: respiratory distress, rales, rhonchi, stridor, chest wall tenderness - Cardiovascular Cardiovascular Exam: Present: tachycardia, normal heart sounds - GI/Abdominal GI/Abdominal exam: Present: soft, normal bowel sounds. Absent: distended, tenderness, guarding, rebound, rigid - Extremities Exam Extremities exam: Present: normal inspection - Back Exam Back exam: Present: normal inspection, full ROM. Absent: CVA tenderness (R), CVA tenderness (L), vertebral tenderness - Neurological Exam Neurological exam: Present: alert, oriented X3, normal gait - Psychiatric Psychiatric exam: Present: normal affect, normal mood - Skin Skin exam: Present: warm, dry, intact, normal color ED Course Vital Signs 02/19/22 02/20/22 20:20 05:42 Temperature 101.9 F H Pulse Rate 106 H 102 H Respiratory 16 14 Rate Blood Pressure 110/69 114/73 [Left] O2 Sat by Pulse 98 100 Oximetry - Reevaluation(s) Reevaluation #1: 02/20/22 05:06 Headache and throat swelling improved. ED Medical Decision Making - Lab Data Result diagrams: 02/19/22 20:56 02/19/22 20:56 - Medical Decision Making 36 yo black female with pmh of HTN and asthma [facility] for evaluation of ENG, sore throat, sob. She states that she was hanging with her cousins on Friday and used cocaine for the first time in her life and since then, she has not felt well since then. She states that she has had intermittent fever and wheezing and feels like her throat is swollen. Patient noted to have exudative tonsils on exam along with fever and anterior cervical lymphadenopathy. Patient concerned that she may be having reaction to cocaine, but assessment more consistent with probable strep pharyngitis with Centor score of 4 points (51-53% probability of strep pharyngitis). Patient given one duoneb treatment along with solumedrol, amoxicillin, pepcid, and benadryl in ED. She will be discharged home with medrol dose pack, amoxicillin, and naproxen to use as directed. She is advised to follow up with pcp if worsening symptoms. She is advised to discontinue use of cocaine. She verbalizes understanding of and agreement with plan of care. Critical care attestation.: If time is entered above; I have spent that time in minutes in the direct care of this critically ill patient, excluding procedure time. ED Disposition Clinical Impression: Exudative pharyngitis Headache Qualifiers: Headache type: unspecified Headache chronicity pattern: acute headache Intractability: not intractable Qualified Code(s): R51.9 - Headache, unspecified Disposition: HOME / SELF CARE / HOMELESS Is pt being admited?: No Does the pt Need Aspirin: No Condition: Stable Instructions: Strep Throat, Adult, Aokp-[id number], General Headache Without Cause, [id number], Pharyngitis, [id number] Additional Instructions: Take medications as prescribed. Follow-up with primary care provider if no improvement or worsening symptoms. Prescriptions: Amoxicillin [Amoxicillin TAB] 875 mg PO BID #14 tab Nystas/Diphen/Xyl Visc/Mylanta [Magic Mouthwash] 30 ml MM Q4H PRN #240 ml PRN Reason: Sore Throat methylPREDNISolone [Medrol 4MG DOSEPAK (21 tabs)] 4 mg PO DAILY #1 pack Naproxen [Naprosyn] 500 mg PO BID #14 tab Referrals: CHARLY MARISCAL MD [Primary Care Provider] - 3-5 Days Forms: Work/School Release Form(ED) Time of Disposition: 05:10
[2022-02-20 05:43] VITALS: BP 114/73
--- NOTE | 2022-02-26 17:57 | Electrocardiograph Report ---
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
== END 2022-02-20 05:43 | disposition home or self-care (01) ==
LOC: ED 18:31
DX: J02.9 Acute pharyngitis, unspecified (principal); R51.9 Headache, unspecified; I10 Essential (primary) hypertension; J45.909 Unspecified asthma, uncomplicated
CPT/HCPCS: 36415; 80053; 84702; 85014; 85018; 93005; 94640; 96372; 99283; J2930; 80320; G0480

== ENCOUNTER 2022-04-28 19:31 | Emergency (ER) | payer MEDICAID ==
--- NOTE | 2022-04-29 09:28 | Emergency Department Report ---
ED Lower Extremity HPI - General Chief Complaint: Extremity Injury, Lower Stated Complaint: BILAT FOOT PAIN Time Seen by Provider: 04/29/22 08:35 Source: patient Mode of arrival: Stretcher Limitations: No Limitations - History of Present Illness Initial Comments: Patient is a 36-year-old female that comes to the ER complaining of left ankle swelling after twisting her ankle when leaving work last night. She also is complaining of sores on the bottom of her feet. She was walking barefoot. She also has a history of asthma and reports a recent cough. She denies fever or chills. She denies purulent sputum. Patient has been in the ER most of the night prior to the current provider seeing her. She is ambulatory, nontoxic [id number] MD Complaint: ankle injury -: Sudden, hour(s) Place: home Severity: moderate Severity scale (0 -10): 4 Worsens With: movement Context: other - Related Data Previous Rx's Medication Instructions Recorded Last Taken Type Albuterol Mdi (or & Nicu Only) 2 puff IH QID PRN #1 inhalation 11/25/18 Unknown Rx [ProAir HFA Inhaler] ALBUTEROL NEB's [Proventil 0.083% 2.5 mg IH Q6H PRN #1 box 07/30/20 Unknown Rx NEBS] Famotidine [Pepcid] 20 mg PO BID 30 Days #60 tablet 02/08/22 Unknown Rx amLODIPine 10 mg PO DAILY 30 Days #30 tab 02/08/22 Unknown Rx Allergies Allergy/AdvReac Type Severity Reaction Status Date / Time lisinopril AdvReac Swelling Verified 02/07/22 09:44 ED Review of Systems ROS: Stated complaint: BILAT FOOT PAIN Other details as noted in HPI Comment: All other systems reviewed and negative ED Past Medical Hx - Past Medical History Previous Medical History?: Yes Hx Hypertension: Yes Hx Asthma: Yes - Surgical History Past Surgical History?: Yes Hx Pacemaker: Yes Hx Cholecystectomy: Yes Additional Surgical History: C sect x4 - Family History Family history: no significant - Social History Smoking Status: Current Every Day Smoker Substance Use Type: None - Medications Home Medications: Home Medications Medication Instructions Recorded Confirmed Last Taken Type Albuterol Mdi (or & Nicu Only) 2 puff IH QID PRN #1 inhalation 11/25/18 02/07/22 Unknown Rx [ProAir HFA Inhaler] ALBUTEROL NEB's [Proventil 0.083% 2.5 mg IH Q6H PRN #1 box 07/30/20 Unknown Rx NEBS] Famotidine [Pepcid] 20 mg PO BID 30 Days #60 tablet 02/08/22 Unknown Rx amLODIPine 10 mg PO DAILY 30 Days #30 tab 02/08/22 Unknown Rx ED Physical Exam - General Limitations: No Limitations General appearance: alert, in no apparent distress - Head Head exam: Present: atraumatic, normocephalic - Eye Eye exam: Present: normal appearance - ENT ENT exam: Present: mucous membranes moist - Neck Neck exam: Present: normal inspection - Respiratory Respiratory exam: Present: normal lung sounds bilaterally. Absent: respiratory distress - Cardiovascular Cardiovascular Exam: Present: regular rate, normal rhythm. Absent: systolic murmur, diastolic murmur, rubs, gallop - GI/Abdominal GI/Abdominal exam: Present: soft, normal bowel sounds - Extremities Exam Extremities exam: Present: normal inspection - Expanded Lower Extremity Exam Left Knee exam: Present: normal inspection Lower Leg exam: Present: normal inspection Ankle exam: Present: swelling Foot/Toe exam: Present: full ROM - Back Exam Back exam: Present: normal inspection - Neurological Exam Neurological exam: Present: alert, oriented X3 - Psychiatric Psychiatric exam: Present: normal affect, normal mood - Skin Skin exam: Present: warm, dry, intact, normal color, other (No appreciable wounds on patient's feet). Absent: rash ED Course Vital Signs 04/28/22 04/29/22 19:31 10:40 Temperature 98 F 96.9 F L Pulse Rate 97 H 62 Respiratory 18 16 Rate Blood Pressure 158/96 Blood Pressure 129/85 [Left] O2 Sat by Pulse 99 100 Oximetry ED Lower Extremity MDM - Radiology Data Radiology results: report reviewed, image reviewed No acute process - Medical Decision Making Vital Signs 04/28/22 04/29/22 19:31 10:40 Temperature 98 F 96.9 F L Pulse Rate 97 H 62 Respiratory 18 16 Rate Blood Pressure 158/96 Blood Pressure 129/85 [Left] O2 Sat by Pulse 99 100 Oximetry X-ray noted. Patient's ankle wrapped and she is placed on crutches. She has been educated on rice therapy. Patient medicated for ankle pain. Chest x-ray noted to be normal. Patient being discharged home with discharge plan of care including diet, activity, medications and follow-up. She verbalizes understanding of plan of care - Differential Diagnosis Rule out fracture Critical care attestation.: If time is entered above; I have spent that time in minutes in the direct care of this critically ill patient, excluding procedure time. ED Disposition Clinical Impression: Ankle sprain Qualifiers: Encounter type: initial encounter Involved ligament of ankle: unspecified ligament Laterality: left Qualified Code(s): S93.402A - Sprain of unspecified ligament of left ankle, initial encounter Cough Qualifiers: Cough type: unspecified Qualified Code(s): R05.9 - Cough, unspecified Disposition: HOME / SELF CARE / HOMELESS Is pt being admited?: No Does the pt Need Aspirin: No Condition: Stable Instructions: Ankle Sprain Additional Instructions: REST ICE ELEVATE FOOT CHESTER FOR COMFORT CRUTCHES FOR COMFORT OVER THE COUNTER MOTRIN OR TYLENOL FOR PAIN FOLLOW UP WITH ORTHO IN 72 HOURS FOR RECHECK REFERRAL BELOW CHEST XRAY NORMAL FOLLOW UP WITH PCP FOR ASTHMA MANAGEMENT REFERRAL BELOW DIET AND ACTIVITY TOLERATED STAY WELL HYDRATED SOAK YOUR FEET IN WARM WATER/WASH WELL/ APPLY LOTION AVOID WALKING BARE FOOT Referrals: JACQUES TREJO MD [Staff Physician] - 3-5 Days TROY EGAN MD [Staff Physician] - 3-5 Days Forms: Work/School Release Form(ED) Time of Disposition: 09:54
--- NOTE | 2022-04-29 09:37 | XRay Report ---
Left ankle, 3 views HISTORY: Fall COMPARISON: None FINDINGS: No acute fracture or malalignment. Ankle mortise is symmetric. 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 There is circumferentia l soft tissue swelling of the ankle. IMPRESSION: Circumferential soft tissue swelling of the left ankle. No acute fracture. Signer Name: Richard Vela MD Signed: 04/29/2022 9:33 AM Workstation Name: [id number]
--- NOTE | 2022-04-29 09:45 | XRay Report ---
XR chest routine 2V INDICATION / CLINICAL INFORMATION: SOB. COMPARISON: 02/07/2022 FINDINGS: SUPPORT DEVICES: None. HEART /PULMONARY VASCULATURE: No significant abnormality. LUNGS / PLEURA: No significant pulmonary or pleural abnormality. No pneumothorax. ADDITIONAL FINDINGS: No significant additional findings. IMPRESSION: 1. No acute findings. Signer Name: Richard Vela MD Signed: 04/29/2022 9:40 AM Workstation Name: [email or web address]
[2022-04-29] MEDS ORDERED: IBUPROFEN 800 MG TAB PO ONE (09:53)
[2022-04-29 10:50] VITALS: BP 129/85
== END 2022-04-29 10:50 | disposition home or self-care (01) ==
LOC: ED 19:31
DX: S93.402A Sprain of unspecified ligament of left ankle, initial encounter (principal); R50.9 Fever, unspecified; I10 Essential (primary) hypertension; J45.909 Unspecified asthma, uncomplicated; Z90.49 Acquired absence of other specified parts of digestive tract; F17.200 Nicotine dependence, unspecified, uncomplicated; Z91.09 Other allergy status, other than to drugs and biological substances; Z79.899 Other long term (current) drug therapy; X50.1XXA Overexertion from prolonged static or awkward postures, initial encounter; Y93.89 Activity, other specified; Y92.89 Other specified places as the place of occurrence of the external cause; Y99.8 Other external cause status
CPT/HCPCS: 71046; 99283